=== PATIENT | female | born 1970 | race Caucasian/White ===

== ENCOUNTER 2020-05-20 13:30 | Emergency (ER) | payer BC ==
--- NOTE | 2020-05-20 14:08 | EDM.PDOC ---
ED HPI GENERAL MEDICAL PROBLEM - General Chief Complaint: General Stated Complaint: ABD PAIN Time Seen by Provider: 05/20/20 13:50 Source of Information: Reports: Patient History Limitations: Reports: No Limitations - History of Present Illness INITIAL COMMENTS - FREE TEXT/NARRATIVE: 2 day history of right sided abdominal/flank pain, now pain has moved suprapubic. Denies any fever, n/v/d, chills, cough, CP, SOB, vaginal discharge/bleeding, or urinary symptoms. Onset Date: 05/18/20 Quality: Reports: Pressure Severity: Mild Improves with: Reports: None Worsens with: Reports: None Associated Symptoms: Reports: No Other Symptoms Right Lower Abdominal Pain Score (Numeric/FACES): 3 - Related Data Allergies Allergy/AdvReac Type Severity Reaction Status Date / Time Sulfa (Sulfonamide Allergy Hives Verified 05/20/20 13:51 Antibiotics) Home Meds: Home Meds Omeprazole 20 mg PO DAILY 05/20/20 [History] Past Medical History - Past Health History Medical/Surgical History: Denies Medical/Surgical History Social & Family History - Family History Family Medical History: Noncontributory - Tobacco Use Smoking Status *Q: Never Smoker Second Hand Smoke Exposure: No - Caffeine Use Caffeine Use: Reports: None - Recreational Drug Use Recreational Drug Use: No ED ROS GENERAL - Review of Systems Review Of Systems: See Below Constitutional: Reports: No Symptoms HEENT: Reports: No Symptoms Respiratory: Reports: No Symptoms Cardiovascular: Reports: No Symptoms Endocrine: Reports: No Symptoms GI/Abdominal: Reports: Abdominal Pain. Denies: Diarrhea, Nausea, Vomiting : Reports: No Symptoms Musculoskeletal: Reports: No Symptoms Skin: Reports: No Symptoms Neurological: Reports: No Symptoms Psychiatric: Reports: No Symptoms Hematologic/Lymphatic: Reports: No Symptoms Immunologic: Reports: No Symptoms ED EXAM, GENERAL - Physical Exam Exam: See Below Exam Limited By: No Limitations General Appearance: Alert, No Apparent Distress Throat/Mouth: Normal Inspection, Normal Voice Head: Atraumatic Neck: Normal Inspection, Full Range of Motion Respiratory/Chest: No Respiratory Distress, Lungs Clear, Normal Breath Sounds, No Accessory Muscle Use Cardiovascular: Normal Peripheral Pulses, Regular Rate, Rhythm, No JVD, No Murmur GI/Abdominal: Normal Bowel Sounds, Soft, No Organomegaly, No Distention, Tender (suprapubic) (Female) Exam: Deferred. No: Vaginal Bleeding, Vaginal Discharge Rectal (Female) Exam: Deferred Back Exam: Normal Inspection, CVA Tenderness (R) Extremities: Normal Inspection, Normal Range of Motion, Non-Tender, No Pedal Edema, Normal Capillary Refill Neurological: Alert, Oriented, CN II-XII Intact, Normal Cognition, Normal Gait Psychiatric: Normal Affect, Normal Mood Skin Exam: Warm, Dry, Intact Lymphatic: No Adenopathy Course - Vital Signs Last Recorded V/S: Last Vital Signs Temp 98.1 F 05/20/20 13:44 Pulse 80 05/20/20 13:44 Resp 18 05/20/20 13:44 BP 134/85 05/20/20 13:44 Pulse Ox 100 05/20/20 13:44 - Orders/Labs/Meds Orders: Active Orders 24 hr Category Date Time Status Abdomen Pelvis wo Cont [CT] Stat Exams 05/20/20 14:02 Taken COMPREHENSIVE METABOLIC PN,CMP [CHEM] Stat Lab 05/20/20 13:59 Ordered UA RFX EUNICE AND CULT IF INDIC [URIN] Stat Lab 05/20/20 14:00 Received Diatrizoate Vero/Diatrizoate Na [Gastrografin 37%] Med 05/20/20 14:30 Active 30 ml PO ASDIRECTED Medication Orders Diatrizoate Meglum/Diatrizoate Sod (Gastrografin 37%) 30 ml PO ASDIRECTED ASPEN Stop: 05/20/20 23:59 Labs: Laboratory Tests 05/20/20 05/20/20 05/20/20 Range/Units 14:00 14:00 14:15 WBC 6.9 D (4.0-11.0) K/uL RBC 4.34 (3.80-5.80) M/uL Hgb 13.2 (11.5-16.5) g/dL Hct 38.7 (37.0-47.0) % MCV 89 (76-96) fL MCH 30.4 (27.0-32.0) pg MCHC 34.1 (31.0-35.0) g/dL RDW 12.1 (11.0-16.0) % Plt Count 276 (150-500) K/uL MPV 10.4 H (6.0-10.0) fL Neut % (Auto) 58.9 (45.0-70.0) % Lymph % (Auto) 32.1 (20.0-40.0) % [place] % (Auto) 7.8 (3.0-10.0) % Eos % (Auto) 0.9 L (1.0-5.0) % Baso % (Auto) 0.3 (0.0-0.5) % Neut # (Auto) 4.06 (2.00-7.50) K/uL Lymph # (Auto) 2.21 (1.50-4.00) K/uL [place] # (Auto) 0.54 (0.20-0.80) K/uL Eos # (Auto) 0.06 (0.04-0.40) K/uL Baso # (Auto) 0.02 (0.02-0.10) K/uL Sodium 142 (136-145) mmol/L Potassium 4.0 (3.5-5.1) mmol/L Chloride 106 (98-107) mmol/L Carbon Dioxide 29.5 (21.0-32.0) mmol/L Anion Gap 10.5 (5.0-15.0) mmol/L BUN 15 (8-26) mg/dL Creatinine 0.88 (0.55-1.02) mg/dL Est Cr Clr Drug Dosing 75.44 mL/min Estimated GFR (MDRD) > 60 (>60) MLS/MIN BUN/Creatinine Ratio 17.0 (6-25) Glucose 118 H (74-100) mg/dL Calcium 8.8 (8.5-10.1) mg/dL Total Bilirubin 0.7 (0.0-1.0) mg/dL AST 12 L (15-37) U/L ALT 20 (12-78) U/L Alkaline Phosphatase 87 (46-116) U/L Total Protein 6.9 (6.4-8.2) g/dL Albumin 3.6 (3.4-5.0) g/dL Globulin 3.3 (2.2-4.2) g/dL Albumin/Globulin Ratio 1.1 (0.8-2.0) Urine Color Yellow Urine Appearance Clear (CLEAR) Urine pH 6.0 (5.0-8.0) Ur Specific [place] >= 1.030 (1.003-1.030) Urine Protein Negative (NEGATIVE) mg/dL Urine Glucose (UA) Negative (NEGATIVE) mg/dL Urine Ketones Negative (NEGATIVE) mg/dL Urine Occult Blood Trace-intact H (NEGATIVE) Urine Nitrite Negative (NEGATIVE) Urine Bilirubin Negative (NEGATIVE) Urine Urobilinogen 0.2 (0.2-1.0) E.U./dL Ur Leukocyte Esterase Negative (NEGATIVE) Urine RBC 0-5 H /HPF Urine WBC 0-5 H /HPF Ur Epithelial Cells Few /HPF Urine Bacteria Few /HPF Meds: Medications Generic Name Dose Route Start Last Admin Trade Name Freq PRN Reason Stop Dose Admin Diatrizoate Meglum/Diatrizoate Sod 30 ml 05/20/20 14:30 Gastrografin 37% PO 05/20/20 23:59 ASDIRECTED ASPEN Departure - Departure Time of Disposition: 15:32 Disposition: Home, Self-Care 01 Clinical Impression: Abdominal pain Qualifiers: Abdominal location: lower abdomen, unspecified Qualified Code(s): R10.30 - Lower abdominal pain, unspecified - Discharge Information *PRESCRIPTION DRUG MONITORING PROGRAM REVIEWED*: Not Applicable *COPY OF PRESCRIPTION DRUG MONITORING REPORT IN PATIENT GERARDO: Not Applicable Instructions: Abdominal Pain, Adult, [id number] Referrals: PCP,None [Primary Care Provider] - Forms: ED Department Discharge Additional Instructions: Return to ED for any increased or new concerning symptoms. Follow up with your PMD as needed. Incidential finding of the 10mm calcified nodule on right kidney should be discussed with PMD at next visit. Sepsis Event Note (ED) - Evaluation Sepsis Screening Result: No Definite Risk - Focused Exam Vital Signs: Vital Signs Temp Pulse Resp BP Pulse Ox 05/20/20 13:44 98.1 F 80 18 134/85 100 05/20/20 13:43 98.1 F 80 18 134/85 100 - My Orders Last 24 Hours: My Active Orders 05/20/20 13:59 COMPREHENSIVE METABOLIC PN,CMP [CHEM] Stat 05/20/20 14:00 UA RFX EUNICE AND CULT IF INDIC [URIN] Stat 05/20/20 14:02 Abdomen Pelvis wo Cont [CT] Stat 05/20/20 14:30 Diatrizoate Vero/Diatrizoate Na [Gastrografin 37%] 30 ml PO ASDIRECTED - Assessment/Plan Last 24 Hours: My Active Orders 05/20/20 13:59 COMPREHENSIVE METABOLIC PN,CMP [CHEM] Stat 05/20/20 14:00 UA RFX EUNICE AND CULT IF INDIC [URIN] Stat 05/20/20 14:02 Abdomen Pelvis wo Cont [CT] Stat 05/20/20 14:30 Diatrizoate Vero/Diatrizoate Na [Gastrografin 37%] 30 ml PO ASDIRECTED
[2020-05-20] MEDS ORDERED: Diatrizoate Meglumine/Diatrizoate Sodium 37% 30 ML Bottle PO SCH (14:30)
--- NOTE | 2020-05-20 15:56 | CRLCT ---
DATE OF SERVICE: 05/20/2020 CLINICAL DATA: abdominal pain Unenhanced abdomen and pelvic CT: The multi slice axial acquisition through the abdomen and pelvis without IV, but with oral contrast was performed. No priors. The lung bases are clear. Heart size is normal. The unenhanced liver appears normal. No focal hepatic lesions. The gallbladder appears normal. The spleen appears normal. The pancreas appears normal. The right and left adrenals appear normal. The move the there is renal cortical scarring in the upper pole of the right kidney with an adjacent 10 mm densely calcified nodule. This is most likely related to a prior infectious process. There are multiple small nonobstructing renal calculi on the left. The right and left kidneys otherwise appear normal. no hydronephrosis or hydroureter. No evidence of ureterolithiasis. The bladder is fluid filled and appears normal. There is an IUD within the uterus. No evidence of appendicitis There is a moderate amount of stool present throughout the ascending and transverse colon. No free air. No free fluid. No dilated loops of bowel. No adenopathy. No aortic aneurysm. There is degenerative disc disease throughout the lower thoracic and lumbar spine. No other significant findings. Ddictated by: Blane Major MD 05/20/2020 3:26PM HUMBERTO
== END 2020-05-20 15:37 | disposition home or self-care (01) ==
LOC: LB.ED 13:30
DX: R10.31 Right lower quadrant pain (principal); Z88.2 Allergy status to sulfonamides
CPT/HCPCS: 36415; 74176; 80053; 81001; 85025; 99284-25; Q9963

== ENCOUNTER 2020-06-04 17:27 | Emergency (ER) | payer BC ==
[2020-06-04] MEDS ORDERED: Ondansetron 4 MG Tab.DIS ONE ×2 (17:58)
[2020-06-04] MEDS ORDERED: Ketorolac 30 MG/ML SDV IVPUSH ONE (18:04)
[2020-06-04] MEDS ORDERED: Ondansetron 4 MG/2 ML SDV IVPUSH ONE ×2 (18:04→19:34)
[2020-06-04] MEDS ORDERED: Sodium Chloride 0.9% 1,000 ML IV ONE (18:05)
[2020-06-04] MEDS ORDERED: Sodium Chloride 0.9% 10 ML Syringe FLUSH PRN (18:05)
--- NOTE | 2020-06-04 18:42 | EDM.PDOC ---
ED HPI GENERAL MEDICAL PROBLEM - General Chief Complaint: General Stated Complaint: vomiting, pain in bladder Time Seen by Provider: 06/04/20 18:00 Source of Information: Reports: Patient History Limitations: Reports: No Limitations - History of Present Illness INITIAL COMMENTS - FREE TEXT/NARRATIVE: Patient is a 50 y/o female who presents for bladder pain that has worsened tod ay. She was seen on the 20 of May and found to have small, non- obstructive kidney stones on the left side on CT. Patient was given flomax and hydrocodone for her pain, but states that is not working today. Associated urinary urgency and nausea/vomiting. Patient denies fever or back pain, She states that Dr. Aguilera said that a repeat CT scan might be indicated if symptoms do not improve and started her on Cipro. Abdominal Pain Score (Numeric/FACES): 3 - Related Data Allergies Allergy/AdvReac Type Severity Reaction Status Date / Time Sulfa (Sulfonamide Allergy Hives Verified 06/04/20 17:58 Antibiotics) Home Meds: Home Meds Omeprazole 20 mg PO DAILY 05/20/20 [History] Past Medical History - Past Health History Medical/Surgical History: Denies Medical/Surgical History Social & Family History - Family History Family Medical History: Noncontributory - Tobacco Use Smoking Status *Q: Never Smoker Second Hand Smoke Exposure: No - Caffeine Use Caffeine Use: Reports: Coffee - Recreational Drug Use Recreational Drug Use: No ED ROS GENERAL - Review of Systems Review Of Systems: See Below Constitutional: Reports: No Symptoms HEENT: Reports: No Symptoms Respiratory: Reports: No Symptoms Cardiovascular: Reports: No Symptoms Endocrine: Reports: No Symptoms GI/Abdominal: Reports: No Symptoms : Reports: Pain, Urgency Skin: Reports: No Symptoms Neurological: Reports: No Symptoms ED EXAM, GENERAL - Physical Exam Exam: See Below Exam Limited By: No Limitations General Appearance: Alert, No Apparent Distress Head: Atraumatic, Normocephalic Neck: Normal Inspection Respiratory/Chest: No Respiratory Distress, Lungs Clear, Normal Breath Sounds, No Accessory Muscle Use, Chest Non-Tender Cardiovascular: Normal Peripheral Pulses, Regular Rate, Rhythm, No Murmur GI/Abdominal: Normal Bowel Sounds, Soft, No Distention, Tender Back Exam: Other (no CVA tenderness) Neurological: Alert, Oriented Psychiatric: Normal Affect Skin Exam: Warm, Dry Course - Vital Signs Text/Narrative:: toradol 30 mg IV given, 1 L NS fluids given, and zofran 4 mg IV given. Was seen in the ED on the and work up shows small, non-obstructive stones on the left side. Awaiting labs. Tried called Dr Aguilera on his cell and home number, but could not get in touch with him regarding this patient. Patient is re-evaluated and is diaphoretic, pale, and still nauseated. She looks very uncomfortable and refusing narcotics at this time. Another zofran [address] ordered and patient with 5 x 4 x 4 mm obstructing calculus distal ureter. Moderate right hydroureteronephorsis. Spoke with [facility] and they do not have urologist on the weekend. Discussed with Dr. Villegas (urologist) at [facility] and he will see her Sunday afternoon in his office. If her pain and nausea/vomiting worsen or continue, she can go to [facility] emergency department and he can see her sooner. Patient still uncomfortable and dilaudid 1 mg IV ordered. Her N/V is controlled after 8 mg of zofran. discussed with patient and she feels better and wants to go home. Advised her to come back to the ED for any fever, persistent/worsening pain, urinary retention, back pain, or N/V. Patient understands and appears more comfortable. Continue hydrocodone and zofran as directed with food. Last Recorded V/S: Last Vital Signs Temp 36.3 C 06/04/20 19:56 Pulse 77 06/04/20 19:56 Resp 20 06/04/20 19:56 BP 132/78 06/04/20 19:59 Pulse Ox 100 06/04/20 19:56 - Orders/Labs/Meds Orders: Active Orders 24 hr Category Date Time Status Abdomen Pelvis wo Cont [CT] Stat Exams 06/04/20 19:46 Taken Sodium Chloride 0.9% [Saline Flush] Med 06/04/20 18:05 Active 10 ml FLUSH ASDIRECTED PRN Peripheral IV Insertion Adult [OM.PC] Routine Oth 06/04/20 18:05 Ordered Medication Orders Sodium Chloride (Saline Flush) 10 ml FLUSH ASDIRECTED PRN PRN Reason: Keep Vein Open Labs: Laboratory Tests 10/09/20 10/09/20 10/09/20 Range/Units 18:01 18:01 18:01 WBC 9.3 D (4.0-11.0) K/uL RBC 4.56 (3.80-5.80) M/uL Hgb 13.9 (11.5-16.5) g/dL Hct 39.9 (37.0-47.0) % MCV 88 (76-96) fL MCH 30.5 (27.0-32.0) pg MCHC 34.8 (31.0-35.0) g/dL RDW 12.1 (11.0-16.0) % Plt Count 285 (150-500) K/uL MPV 10.4 H (6.0-10.0) fL Neut % (Auto) 76.2 H (45.0-70.0) % Lymph % (Auto) 16.7 L (20.0-40.0) % [place] % (Auto) 6.7 (3.0-10.0) % Eos % (Auto) 0.2 L (1.0-5.0) % Baso % (Auto) 0.2 (0.0-0.5) % Neut # (Auto) 7.09 (2.00-7.50) K/uL Lymph # (Auto) 1.55 (1.50-4.00) K/uL [place] # (Auto) 0.62 (0.20-0.80) K/uL Eos # (Auto) 0.02 L (0.04-0.40) K/uL Baso # (Auto) 0.02 (0.02-0.10) K/uL Sodium 138 (136-145) mmol/L Potassium 3.9 (3.5-5.1) mmol/L Chloride 100 (98-107) mmol/L Carbon Dioxide 28.4 (21.0-32.0) mmol/L Anion Gap 13.5 (5.0-15.0) mmol/L BUN 16 (8-26) mg/dL Creatinine 1.02 (0.55-1.02) mg/dL Est Cr Clr Drug Dosing 65.08 mL/min Estimated GFR (MDRD) 57 L (>60) MLS/MIN BUN/Creatinine Ratio 15.7 (6-25) Glucose 116 H (74-100) mg/dL Lactic Acid (0.4-2.0) mmol/L Calcium 9.1 (8.5-10.1) mg/dL Total Bilirubin 1.1 H D (0.0-1.0) mg/dL AST 14 L (15-37) U/L ALT 24 (12-78) U/L Alkaline Phosphatase 100 (46-116) U/L Total Protein 7.8 (6.4-8.2) g/dL Albumin 4.1 (3.4-5.0) g/dL Globulin 3.7 (2.2-4.2) g/dL Albumin/Globulin Ratio 1.1 (0.8-2.0) Urine Color Yellow Urine Appearance Slightly cloudy (CLEAR) Urine pH 6.0 (5.0-8.0) Ur Specific [place] 1.025 (1.003-1.030) Urine Protein Negative (NEGATIVE) mg/dL Urine Glucose (UA) Negative (NEGATIVE) mg/dL Urine Ketones 40 H (NEGATIVE) mg/dL Urine Occult Blood Moderate H (NEGATIVE) Urine Nitrite Negative (NEGATIVE) Urine Bilirubin Negative (NEGATIVE) Urine Urobilinogen 0.2 (0.2-1.0) E.U./dL Ur Leukocyte Esterase Negative (NEGATIVE) Urine RBC 50-75 H /HPF Urine WBC 0-5 H /HPF Ur Squamous Epith Cells Few /HPF 06/04/20 Range/Units 18:01 WBC (4.0-11.0) K/uL RBC (3.80-5.80) M/uL Hgb (11.5-16.5) g/dL Hct (37.0-47.0) % MCV (76-96) fL MCH (27.0-32.0) pg MCHC (31.0-35.0) g/dL RDW (11.0-16.0) % Plt Count (150-500) K/uL MPV (6.0-10.0) fL Neut % (Auto) (45.0-70.0) % Lymph % (Auto) (20.0-40.0) % [place] % (Auto) (3.0-10.0) % Eos % (Auto) (1.0-5.0) % Baso % (Auto) (0.0-0.5) % Neut # (Auto) (2.00-7.50) K/uL Lymph # (Auto) (1.50-4.00) K/uL [place] # (Auto) (0.20-0.80) K/uL Eos # (Auto) (0.04-0.40) K/uL Baso # (Auto) (0.02-0.10) K/uL Sodium (136-145) mmol/L Potassium (3.5-5.1) mmol/L Chloride (98-107) mmol/L Carbon Dioxide (21.0-32.0) mmol/L Anion Gap (5.0-15.0) mmol/L BUN (8-26) mg/dL Creatinine (0.55-1.02) mg/dL Est Cr Clr Drug Dosing mL/min Estimated GFR (MDRD) (>60) MLS/MIN BUN/Creatinine Ratio (6-25) Glucose (74-100) mg/dL Lactic Acid 0.9 (0.4-2.0) mmol/L Calcium (8.5-10.1) mg/dL Total Bilirubin (0.0-1.0) mg/dL AST (15-37) U/L ALT (12-78) U/L Alkaline Phosphatase (46-116) U/L Total Protein (6.4-8.2) g/dL Albumin (3.4-5.0) g/dL Globulin (2.2-4.2) g/dL Albumin/Globulin Ratio (0.8-2.0) Urine Color Urine Appearance (CLEAR) Urine pH (5.0-8.0) Ur Specific [place] (1.003-1.030) Urine Protein (NEGATIVE) mg/dL Urine Glucose (UA) (NEGATIVE) mg/dL Urine Ketones (NEGATIVE) mg/dL Urine Occult Blood (NEGATIVE) Urine Nitrite (NEGATIVE) Urine Bilirubin (NEGATIVE) Urine Urobilinogen (0.2-1.0) E.U./dL Ur Leukocyte Esterase (NEGATIVE) Urine RBC /HPF Urine WBC /HPF Ur Squamous Epith Cells /HPF Meds: Medications Generic Name Dose Route Start Last Admin Trade Name Freq PRN Reason Stop Dose Admin Sodium Chloride 10 ml 06/04/20 18:05 Saline Flush FLUSH ASDIRECTED PRN Keep Vein Open Discontinued Medications Generic Name Dose Route Start Last Admin Trade Name Freq PRN Reason Stop Dose Admin Hydromorphone HCl 2 mg 06/04/20 21:03 06/04/20 21:08 Dilaudid IVPUSH 06/04/20 21:04 Not Given ONETIME ONE Sodium Chloride 1,000 mls @ 999 mls/hr 06/04/20 18:05 06/04/20 18:32 Normal Saline IV 06/04/20 19:05 999 mls/hr .BOLUS ONE Administration Ketorolac Tromethamine 30 mg 06/04/20 18:04 06/04/20 18:30 Toradol IVPUSH 06/04/20 18:05 30 mg ONETIME ONE Administration Ondansetron HCl 4 mg 06/04/20 18:04 06/04/20 18:28 Zofran IVPUSH 06/04/20 18:05 4 mg ONETIME ONE Administration Ondansetron HCl 4 mg 06/04/20 19:34 06/04/20 19:35 Zofran IVPUSH 06/04/20 19:35 4 mg ONETIME ONE Administration Departure - Departure Time of Disposition: 21:20 Disposition: Home, Self-Care 01 Condition: Good Clinical Impression: Kidney stone on right side - Discharge Information *PRESCRIPTION DRUG MONITORING PROGRAM REVIEWED*: Not Applicable *COPY OF PRESCRIPTION DRUG MONITORING REPORT IN PATIENT GERARDO: Not Applicable Instructions: Kidney Stones Forms: ED Department Discharge Sepsis Event Note (ED) - Evaluation Sepsis Screening Result: No Definite Risk - Focused Exam Vital Signs: Vital Signs Temp Pulse Resp BP Pulse Ox 06/04/20 19:59 132/78 06/04/20 19:56 36.3 C 77 20 143/94 H 100 06/04/20 17:59 36.9 C 72 18 145/83 H 99 06/04/20 17:45 36.9 C 72 18 145/83 H 99 - My Orders Last 24 Hours: My Active Orders 06/04/20 18:05 Sodium Chloride 0.9% [Saline Flush] 10 ml FLUSH ASDIRECTED PRN Peripheral IV Insertion Adult [OM.PC] Routine 06/04/20 19:46 Abdomen Pelvis wo Cont [CT] Stat - Assessment/Plan Last 24 Hours: My Active Orders 06/04/20 18:05 Sodium Chloride 0.9% [Saline Flush] 10 ml FLUSH ASDIRECTED PRN Peripheral IV Insertion Adult [OM.PC] Routine 06/04/20 19:46 Abdomen Pelvis wo Cont [CT] Stat
[2020-06-04] MEDS ORDERED: HYDROmorphone 2 MG/ML SDV IVPUSH ONE ×2 (21:03→21:10)
--- NOTE | 2020-06-05 14:52 | CT ---
CLINICAL DATA: Kidney stones. UNENHANCED ABDOMEN AND PELVIC CT, 04 JUNE 2020: Multislice acquisition through the abdomen and pelvis without IV or oral contrast was performed. No priors. The lung bases are clear. The heart size is normal. The unenhanced liver appears normal. No focal hepatic lesions. The gallbladder appears normal. No calcified gallstones. No pericholecystic fluid. The spleen appears normal. The pancreas appears normal. The right and left adrenals appear normal. There is renal cortical scarring in the upper pole of the right kidney with an adjacent large calcification, which is most likely a dystrophic calcification. There are small nonobstructing renal calculi bilaterally. There is a 4 mm distal ureteral calculi on the right, just proximal to the ureterovesical junction. There is hydronephrosis proximal to it. The kidneys and collecting systems are otherwise unremarkable. The bladder is partially fluid-filled. There is diffuse bladder wall thickening. This is probably related to non-distention. Cystitis should be considered. There is an IUD noted within the uterus. No evidence of appendicitis. The stomach is gas and fluid-filled and moderately distended. No free air. No free fluid. No dilated loops of bowel. No adenopathy. No aortic aneurysm. There is degenerative disk disease throughout the lower thoracic and lumbar spine. IMPRESSION: Distal ureteral calculi on right with proximal hydronephrosis and hydroureter consistent with obstruction. Other findings, as discussed above. Job: [id number] [facility]
== END 2020-06-04 21:33 | disposition home or self-care (01) ==
LOC: LB.ED 17:27
DX: N13.2 Hydronephrosis with renal and ureteral calculous obstruction (principal); Z88.2 Allergy status to sulfonamides; Z79.899 Other long term (current) drug therapy
CPT/HCPCS: 36415; 74176; 80053; 81001; 83605; 85025; 96361; 96374; 96375; 96376; 99284; 99284-25; A9270-GY; J1170; J1885; J2405; J7030

== ENCOUNTER 2022-03-23 18:32 | Emergency (ER) | payer BC ==
[2022-03-23] MEDS: Lidocaine 2% with EPINEPHrine 1:100,000 20 ML MDV ONE (19:02)
[2022-03-23] MEDS: Diphtheria,Pertussis(Acell),Tetanus Vaccine 0.5 ML SDV IM ONE (19:26)
== END 2022-03-23 19:17 | disposition home or self-care (01) ==
LOC: LB.ED 18:32
DX: S61.216A Laceration without foreign body of right little finger without damage to nail, initial encounter (principal); S61.206A Unspecified open wound of right little finger without damage to nail, initial encounter; Z88.2 Allergy status to sulfonamides; Z23 Encounter for immunization; W26.8XXA Contact with other sharp object(s), not elsewhere classified, initial encounter
CPT/HCPCS: 12001; 90471; 90715; 99281; 99282-25

== ENCOUNTER 2024-07-20 04:00 | Emergency (ER) | payer BC ==
[2024-07-20] MEDS: fentaNYL 100 MCG/2 ML SDV IVPUSH PRN (04:14)
[2024-07-20] MEDS: Ketorolac 30 MG/ML SDV IVPUSH ONE (04:19)
[2024-07-20] MEDS ORDERED: Naloxone 2 MG/2 ML Syringe IVPUSH PRN (04:26)
[2024-07-20] MEDS: Ondansetron 4 MG/2 ML SDV IVPUSH ONE (04:48)
[2024-07-20 04:53] LABS: BASOPHILS ABSOLUTE AUTO 0.03 K/uL (0.02-0.10); BASOPHILS PERCENT AUTO 0.4 % (0.0-0.5); EOSINOPHILS ABSOLUTE AUTO 0.16 K/uL (0.04-0.40); EOSINOPHILS PERCENT AUTO 2.1 % (1.0-5.0); HEMATOCRIT 39.8 % (37.0-47.0); HEMOGLOBIN 13.7 g/dL (11.5-16.5); LYMPHOCYTES ABSOLUTE AUTO 4.01 K/uL (1.50-4.00); LYMPHOCYTES PERCENT AUTO 51.7 % (20.0-40.0); MEAN CORPUSCULAR HEMOGLOBIN 30.4 pg (27.0-32.0); MEAN CORPUSCULAR HGB CONC 34.4 g/dL (31.0-35.0); MEAN CORPUSCULAR VOLUME 88 fL (76-96); MEAN PLATELET VOLUME 10.9 fL (6.0-10.0); MONOCYTES ABSOLUTE AUTO 0.72 K/uL (0.20-0.80); MONOCYTES PERCENT AUTO 9.3 % (3.0-10.0); NEUTROPHILS ABSOLUTE AUTO 2.83 K/uL (2.00-7.50); NEUTROPHILS PERCENT AUTO 36.5 % (45.0-70.0); PLATELET COUNT,PLT 313 K/uL (150-500); RED CELL DISTRIBUTION WIDTH 12.2 % (11.0-16.0); WHITE BLOOD CELL COUNT,WBC 7.8 K/uL (4.0-11.0)
[2024-07-20 05:02] LABS: LIPASE 51 U/L (16-77)
[2024-07-20 05:03] LABS: APPEARANCE,URINE CLEAR (CLEAR); COLOR,URINE YELLOW
[2024-07-20 05:04] LABS: A/G RATIO 1.1 (0.8-2.0); ALBUMIN 3.7 g/dL (3.4-5.0); ANION GAP 13.6 mmol/L (5.0-15.0); BILIRUBIN TOTAL 0.7 mg/dL (0.0-1.0); BILIRUBIN,URINE NEGATIVE (NEGATIVE); BUN/CREATININE RATIO 14.4 (6-25); CALCIUM 8.9 mg/dL (8.5-10.1); CALCIUM OXALATE CRYSTALS,URINE OCCASIONAL /HPF; CREATININE 1.04 mg/dL (0.55-1.02); EST CRCL DRUG DOSING (CG) 60.93 mL/min; GLUCOSE,URINE NEGATIVE (NEGATIVE); KETONES,URINE NEGATIVE (NEGATIVE); LEUKOCYTE ESTERASE,URINE SMALL (NEGATIVE); NITRITE,URINE NEGATIVE (NEGATIVE); OCCULT BLOOD,URINE MODERATE (NEGATIVE); POTASSIUM,K 3.6 mmol/L (3.5-5.1); PROTEIN,URINE 30 mg/dL (NEGATIVE); SQUAMOUS EPITHELIAL CELLS,UR FEW /HPF; UROBILINOGEN,URINE 0.2 E.U./dL (0.2-1.0)
[2024-07-20 05:13] LABS: C-REACTIVE PROTEIN < 5.0 mg/L (<5.0)
== END 2024-07-20 07:05 | disposition home or self-care (01) ==
LOC: LB.ED 04:00
DX: N13.2 Hydronephrosis with renal and ureteral calculous obstruction (principal); K21.9 Gastro-esophageal reflux disease without esophagitis; Z79.899 Other long term (current) drug therapy; Z88.2 Allergy status to sulfonamides
CPT/HCPCS: 36415; 74176; 80053; 81001; 83690; 85025; 86140; 96374; 96375; 99284; 99284-25; J1885; J2405; J3010